=== PATIENT | female | born 1995 | race Caucasian/White ===

== ENCOUNTER → 2019-02-09 | Outpatient (CLI) | payer BC ==
[2019-02-09 18:59] LABS: HIV 1 AB Non-Reactive (Non-Reactive); HIV AB P24 Non-Reactive (Non-Reactive); HIV P24 AG Non-Reactive (Non-Reactive)
== END | disposition home or self-care (01) ==
LOC: LABWHC1 11:56
PROVIDERS: ATTEND Obstetrics & Gynecology Reproductive Endocrinology
DX: K75.9 Inflammatory liver disease, unspecified (principal); A64 Unspecified sexually transmitted disease
CPT/HCPCS: 36415; 80074; 86780; 87390